=== PATIENT | male | born 1945 | race Caucasian/White ===

== ENCOUNTER 2018-11-02 13:55 | Emergency (ER) | payer MEDICARE ==
[2018-11-02 15:12] VITALS: BP 131/64
--- NOTE | 2018-11-02 15:24 | UC ---
Skin Complaint HPI - HPI Summary HPI Summary: itchy rash groin area x 7 days no pain , no swelling, no discharge, no fever, no chills - History of Current Complaint Chief Complaint: UCRash Time Seen by Provider: 11/02/18 15:03 Stated Complaint: PERSONAL Hx Obtained From: Patient Onset/Duration: Gradual Onset, Lasting Days - 7, Still Present Timing: Constant Onset Severity: Moderate Current Severity: Moderate Pain Intensity: 0 Location: Discrete - groin area Character: Pruritus, Redness Aggravating Factor(s): Nothing Alleviating Factor(s): Nothing Associated Signs & Symptoms: Negative: Nausea, Vomiting, Numbness, Shivering, Drainage, Bruising, Tenderness, Red Streaks - Allergy/Home Medications Allergies/Adverse Reactions: Allergies Allergy/AdvReac Type Severity Reaction Status Date / Time No Known Allergies Allergy Verified 10/09/18 16:30 Home Medications: Home Medications Eva Medicated Powder 1 dose TOPICAL DAILY PRN 11/02/18 [History Confirmed 06/13] Dapagliflozin/Metformin HCl [Xigduo Xr 5-1000 mg] 1 tab PO BID 11/02/18 [ History Confirmed 11/02/18] PMH/Surg Hx/FS Hx/Imm Hx Endocrine History: Diabetes Cardiovascular History: Cardiac Disease, Hypertension - Surgical History Surgical History: Yes Surgery Procedure, Year, and Place: pylonidal cyst removed, thyroid secretion removed-secretion caused stroke - Family History Known Family History: Positive: Hypertension - Social History Alcohol Use: Rare Substance Use Type: None Smoking Status (MU): Never Smoked Tobacco Review of Systems All Other Systems Reviewed And Are Negative: Yes Constitutional: Positive: Negative Skin: Positive: Rash Eyes: Positive: Negative ENT: Positive: Negative Respiratory: Positive: Negative Cardiovascular: Positive: Negative Is Patient Immunocompromised?: No Physical Exam Triage Information Reviewed: Yes Appearance: Well-Appearing, No Pain Distress, Well-Nourished Vital Signs: Initial Vital Signs Temp 97.9 F 11/02/18 14:57 Pulse 75 11/02/18 14:57 Resp 20 11/02/18 14:57 BP 131/64 11/02/18 14:57 Pulse Ox 97 11/02/18 14:57 Vital Signs Reviewed: Yes Eye Exam: Normal Eyes: Positive: Conjunctiva Clear ENT: Positive: Normal ENT inspection, Hearing grossly normal, Pharynx normal Neck: Positive: Supple, Nontender, No Lymphadenopathy Respiratory: Positive: Chest non-tender, Lungs clear, Normal breath sounds Cardiovascular: Positive: RRR, No Murmur, Pulses Normal Neurological Exam: Normal Skin: Positive: Rashes - macular rash groin area Course/Dx - Diagnoses Provider Diagnosis: Tinea cruris Discharge - Sign-Out/Discharge Documenting (check all that apply): Patient Departure All imaging exams completed and their final reports reviewed: No Studies - Discharge Plan Condition: Stable Disposition: HOME Prescriptions: Ketoconazole 2 % CREAM (NF) [Nizoral 2% CREAM (NF)] 1 applic TOPICAL BID #60 gm Patient Education Materials: Santiago Andrews (ED) Referrals: Corrine Ríos MD [Primary Care Provider] - If Needed - Billing Disposition and Condition Condition: STABLE Disposition: Home
== END 2018-11-02 15:27 | disposition home or self-care (01) ==
LOC: UCCORT 13:55
DX: B35.6 Tinea cruris (principal)
CPT/HCPCS: 99212; G0463